=== PATIENT | female | born 1990 | race African-American/Black ===

== ENCOUNTER 2024-01-27 19:12 | Emergency (ER) | payer SELFPAY ==
[2024-01-27 19:14] VITALS: BP 136/78; BMI 40.5
--- NOTE | 2024-01-27 19:37 | ED.MUSCINJ ---
HPI-Injury
General
Chief Complaint: Musculo-Skeletal Complaint
Source: patient and ambulance crew
Exam Limitations: none
Time Seen by Provider: 01/27/24 19:12
Nursing documentation reviewed up to this point in time: agreed with
Travel History
Have you had any contact with someone who has COVID-19?: No
Do you have any symptoms of coronavirus? Fever > 100 degrees, chills, cough, shortness of breath, sore throat, loss of taste or smell, muscle aches, or headache?: No
History of Present Illness-Injury
Initial Injury comments:
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 Patient reports that just prior
to arrival, her leg got caught between a Crystal lift and a patient's bed. Patient reports pain in the lower leg, between her knee and ankle. Patient has not really tried to walk on the leg since the injury occurred. Patient denies taking any
medication for pain prior to arrival. Patient reports that medics did apply an ice pack. Patient denies any other injuries were sustained. Patient denies previous injury to this extremity. Patient denies numbness, weakness, tingling of the
extremity.
Past History
Past History
ED Past Medical History: None
ED Past Surgical History: None
Social History
Tobacco: Non-smoker
Alcohol: None
Drug: None
Review of Systems
Review of Systems
Allergies reviewed?: Yes
All Other Systems: ROS reviewed and negative except as documented in HPI and ROS
Constitutional: Reports no symptoms
EENT: Reports no symptoms
Respiratory: Reports no symptoms
Cardiac: Reports no symptoms
ABD/GI: Reports no symptoms
: Reports no symptoms
Musculoskeletal: Reports other (Right lower leg pain and swelling)
Skin: Reports no symptoms
Neurological: Reports no symptoms
Endocrine: Reports no symptoms
Hematologic/Lymphatic: Reports no symptoms
Psychiatric: Reports no symptoms
Phy Exam
General Physical Exam
General Presentation: well appearing and no apparent distress
General age: appears stated age
General Skin: warm and dry
General Habitus: normal
General Mental: alert
General Hydration: appears well hydrated
ENT Exam
ENT Exam: EOMI
Pulmonary Exam
Pulmonary Exam: no respiratory distress
Neurological Exam
Neurological Exam: alert, oriented x3, no motor deficits, no sensory deficits and speech normal
Musculoskeletal Exam
Musculoskeletal Exam: other (mild swelling over the anterior aspect of the right lower leg with ttp, no abrasions, lacerations, ecchymosis, no ttp to the knee but decreased ROM 2/2 pain, pt is able to move her toes without difficulty, 2+ DP pulses,
sensation intact to light touch distally)
Skin Exam
Skin Exam: normal color, warm/dry and no rash
Injury Course
Orders/Labs/Results
Orders:
Orders
01/27/24 19:26
Acetaminophen [Tylenol] 650 mg PO NOW STA
Ibuprofen [Motrin] 600 mg PO NOW STA
Ankle, Right 3 view CR [CR Ankle - Right Min 3 Views *] Urgent
Comment:
Reason For Exam: pain, leg crushed
Knee, Right 4 or More Views [CR Knee- Right 4 Or More View*] Urgent
Comment:
Reason For Exam: right knee pain, leg crushed
Tibia/Fibula, Right 2 View [CR Leg Tibia/fibula Right 2 Vw] Urgent
Comment:
Reason For Exam: pain, leg was crushed
*Critical Care Note
Total Time (30-74mins, 75-104mins- exclusive of procedures): Not Applicable
Update Note
Update Note:
33 yo female p/w right lower extremity pain after it got caught between a Crystal lift and a pt's bed while at work. On arrival, VSS, afebrile. On exam, pt is well-appearing and in NAD, she is NVI. Radiographs of the right lower extremity
demonstrates no acute fracture or dislocation. Patient likely with a contusion. Will treat as such with rest, ice, elevation, NSAIDs for pain control. Patient provided with a work excuse note and is safe for discharge to home with return
precautions. She expressed understanding of the plan and agreed.
ED Attending Note
-
Portions of this chart may have been created with voice recognition software.� Occasional wrong word or��sound alike� substitutions may have occurred due to the inherent limitations of voice recognition software.
Discharge Plan
Departure
Patient Disposition: Home (Routine Discharge)
Date of Disposition: 01/27/24
Time of Disposition: 20:59
Patient with high blood pressure during this ER visit?: No
Condition: Good
Covid-19: Not Applicable
Discharge Problem:
Contusion of right lower extremity
Instructions: Contusion (DC)
Prescriptions:
No Action
No Current Medications
0
Referrals:
Follow up, with your primary care provider [Other] - Follow up in 2-3 days
UNKNOWN - PT DOES,NOT KNOW [Family Provider] -
Stand Alone Forms: Return to Work
Activity Restrictions/Additional Instructions:
You were seen in the emergency department for evaluation of an injury to your right lower leg. You had x-rays which show no broken or dislocated bones. It is safe for you to be discharged home. However, you must rest and elevate your leg, ideally
above the level of your heart, you may use ice to the area for 20 minutes at a time 4-5 times a day but do not put the ice directly on your skin. You may take ibuprofen 600 mg every 6 hours as needed for pain and inflammation. You may add on
Tylenol 650 mg every 4 hours if needed for additional pain relief, not to exceed 3000 mg in a 24-hour period. Please follow-up with your primary care provider if your pain does not improve within the next 2 to 3 days. Please return to the
emergency department immediately for increasing swelling, discoloration, numbness, weakness, tingling of the foot or toes, or for any other worsening or concerning symptoms.
Interventions
Interventions:
*Risk Screen - Suicide Last Done: 01/27/24 19:14
*General Assessment Last Done: 01/27/24 19:14
*Neglect/Abuse Screening Last Done: 01/27/24 19:14
ED- Fall Risk Assessment Last Done: 01/27/24 19:14
*ED COVID-19 Vaccine History Last Done: 01/27/24 19:14
*Nursing Disposition Last Done: 01/27/24 21:00
ED-Musculoskeletal Assessment Last Done: 01/27/24 19:56
Discharge Date and Time
Discharge Date/Time: 01/27/24 21:46
Print Language: PERSIAN
[2024-01-27] MEDS: MOTRIN 600 MG PO (19:54)
[2024-01-27] MEDS: TYLENOL 650 MG PO (19:54)
[2024-01-27 20:15] VITALS: BP 120/63
[2024-01-27 21:00] VITALS: BP 122/76
== END 2024-01-27 21:46 | disposition home or self-care (01) ==
LOC: EMR 19:12
PROVIDERS: EMERGENCY PHYSICIAN Emergency Medicine
DX: S80.11XA Contusion of right lower leg, initial encounter (principal); X58.XXXA Exposure to other specified factors, initial encounter
CPT/HCPCS: 99283; 73564; 73590; 73610

== ENCOUNTER 2024-02-03 18:25 | Emergency (ER) | payer SELFPAY ==
[2024-02-03 18:38] VITALS: BP 144/92
--- NOTE | 2024-02-03 19:13 | ED.GENMED ---
History of Present Illness
General
Chief Complaint: Musculo-Skeletal Complaint
Source: patient
Exam Limitations: none
Time Seen by Provider: 02/03/24 19:02
Travel History
Have you had any contact with someone who has COVID-19?: No
Do you have any symptoms of coronavirus? Fever > 100 degrees, chills, cough, shortness of breath, sore throat, loss of taste or smell, muscle aches, or headache?: No
History of Present Illness
History of Present Illness:
This is a 33 year old female that comes in with c/o right lower leg pain. States that she was here before for this and that she has continued with right leg pain. States that she was told to take Ibuprofen and Tylenol but she hasn't taken anything
since yesterday. States that she has pain with walking. Denies any fever, chills, chest pain, SOB, abd pain, nausea, vomiting, diarrhea, headache, dizziness, urinary burning.
Past History
Past History
ED Past Medical History: None; Negative Asthma, HTN, Hypercholesterolemia or NIDDM
ED Past Surgical History: None
Social History
Tobacco: Non-smoker
Alcohol: None
Drug: None
Personal: Single
Living: with family
Employment: Employed
Review of Systems
Review of Systems
All Other Systems: ROS reviewed and negative except as documented in HPI and ROS
Constitutional: Reports no symptoms; Denies fever or chills
EENT: Reports no symptoms
Respiratory: Reports no symptoms
Cardiac: Reports no symptoms
ABD/GI: Reports no symptoms; Denies abdominal pain, nausea, vomiting or diarrhea
: Reports no symptoms
Musculoskeletal: Reports other (Right harrington pain)
Skin: Reports no symptoms
Neurological: Reports no symptoms; Denies dizzy or headache
Psychiatric: Reports no symptoms
Phy Exam
General Physical Exam
General Presentation: well appearing and no apparent distress
General age: appears stated age
General Skin: warm and dry
General Habitus: normal
General Mental: alert
General Hydration: appears well hydrated
ENT Exam
ENT Exam: TM's normal, pharynx normal and neck supple
Eye Exam
Eye Exam: EOMI
Cardiovascular Exam
Cardiovascular Exam: regular rate/rhythm, no edema, no murmur and normal peripheral pulses
Pulmonary Exam
Pulmonary Exam: lungs clear, no respiratory distress, no rales, chest non tender, no crackles, no rhonchi, no wheezing and no cough
Musculoskeletal Exam
Musculoskeletal Exam: full ROM, no edema and other (Negative for any swelling)
Skin Exam
Skin Exam: normal color, warm/dry, no rash, no petechia and other (negative for any redness)
Psychiatric Exam
Psychiatric Exam: normal mood/affect
Course
Orders/Labs/Results
Orders:
Orders
02/03/24 19:12
Tib/Fib, Right 2 View [CR Leg Tibia/fibula Right 2 Vw] Urgent
Comment:
Reason For Exam: Right leg pain
US Legs, Right [US Periph Venous LOWER Ext RT] Urgent
Comment:
Reason For Exam: Right lower leg pain
02/03/24 19:13
Acetaminophen [Tylenol] 1,000 mg PO NOW STA
Ibuprofen [Motrin] 600 mg PO NOW STA
Vital Signs
Initial and Last Documented VS:
Initial Vital Signs
Temp Pulse Resp BP Pulse Ox
97.8 F 59 18 144/92 100
02/03/24 18:38 02/03/24 18:38 02/03/24 18:38 02/03/24 18:38 02/03/24 18:38
Last Documented Vital Signs
Temp Pulse Resp BP Pulse Ox
97.8 F 59 18 144/92 100
02/03/24 18:38 02/03/24 18:38 02/03/24 18:38 02/03/24 18:38 02/03/24 18:38
MDM/Problems Addressed
Differential Diagnosis Includes:
DVT, contusion
MDM/Problems Addressed:
This is a 33 year old female that comes in with c/o right lower leg pain. States that she was here before for the same thing. States that she has pain with walking at work.
Will get US and X-ray.
Back into see patient. Explained that her US is negative for DVT and her x-rays are negative for any fractures. Patient can continue with Ibuprofen 600mg every 6 hours with food and Tylenol 1000mg every 6 hours for pain. Follow up with the family
doctor. Return with any conerns.
Chronic conditions affecting care:
NA
Acute Exacerbation and/or Progression of Chronic Illness:
NA
*Radiology
Radiology exam reviewed: preliminary read by ED provider (Tib/fib- Negative for fracture or dislocation. ) and radiology read reviewed (US-No evidence of DVT of the right lower extremity. )
*Pulse Oximetry
Patient hypoxic: no
*EKG
Interpreted by ED Provider?: NA
Rate: EKG- N/A
*Parts Person Interpretation
Rate: Parts Person- N/A
*Critical Care Note
Total Time (30-74mins, 75-104mins- exclusive of procedures): Not Applicable
ED Attending Note
-
Portions of this chart may have been created with voice recognition software.� Occasional wrong word or��sound alike� substitutions may have occurred due to the inherent limitations of voice recognition software.
Discharge Plan
Departure
Patient Disposition: Home (Routine Discharge)
Date of Disposition: 02/03/24
Time of Disposition: 20:21
Patient with high blood pressure during this ER visit?: Yes
Condition: Good
Covid-19: Not Applicable
Discharge Problem:
Lower extremity pain
Instructions: Harrington Splints (DC), BLOOD PRESSURE
Prescriptions:
No Action
No Current Medications
0
Referrals:
NONE,* [Family Provider] -
Activity Restrictions/Additional Instructions:
As discussed, your US is negative for any blood clots and your X-ray is negative for any fracture or dislocation. You may continue with Tylenol 1000mg every 6 hours for pain and [id number] 600mg every 6 hours with food for pain. Follow up with the
family doctor for recheck. IF YOU HAVE ANY OTHER CONCERNS PLEASE RETURN TO THE EMERGENCY ROOM.
Interventions
Interventions:
*Risk Screen - Suicide Last Done: 02/03/24 19:05
*General Assessment Last Done: 02/03/24 19:05
*Neglect/Abuse Screening Last Done: 02/03/24 19:05
ED-Musculoskeletal Assessment Last Done: 02/03/24 19:06
Discharge Date and Time
Print Language: DANISH
[2024-02-03] MEDS: TYLENOL 1000 MG PO (19:32)
[2024-02-03] MEDS: MOTRIN 600 MG PO (19:32)
== END 2024-02-03 20:41 | disposition home or self-care (01) ==
LOC: EMR 18:25
PROVIDERS: EMERGENCY PHYSICIAN Emergency Medicine
DX: M79.661 Pain in right lower leg (principal)
CPT/HCPCS: 99284; 73590; 93971